=== PATIENT | female | born 1960 | race Caucasian/White ===

== ENCOUNTER 2016-11-27 08:08 | Inpatient (IN) | payer OTHER ==
[~2016-11-27] VITALS: Ht 157.5 cm; Wt 57.9 kg
[2016-11-27] VITALS (9 sets, daily range): BP systolic 152–199; BP diastolic 73–119; PULSE 74–109; RESP 18–20; TEMP 97.3–98; O2SAT 94–98
[2016-11-27] MEDS ORDERED: SODIUM CHLOR 0.9% 1000 ML INJ 1,000 ML IV ONE (08:29)
[2016-11-27] MEDS ORDERED: SODIUM CHLORIDE 0.9% FLUSH 5 ML FLUSH IVF PRN (08:30)
[2016-11-27] MEDS ORDERED: diphenhydrAMINE HCL 50 MG/ML VIAL IVP ONE (08:30)
[2016-11-27] MEDS ORDERED: PROCHLORPERAZINE INJ 10 MG/2 ML VIAL IVP ONE (08:30)
[2016-11-27] MEDS ORDERED: LORazepam 2 MG/ML VIAL IV PUSH ONE (08:30)
--- NOTE | 2016-11-27 08:38 | PD ---
HPI Chief Complaint: Neuro Symptoms/ Deficits Time Seen by Provider: 08:29 Travel History International Travel<30 days: No Contact w/Intl Traveler<30days: No Traveled to known affect area: No History of Present Illness HPI [id number] woman who presents to the emergency department complaining that starting yesterday evening she started getting funny visual changes. She describes a multicolored spots in her visual alvarado were toward the front. It is worse this morning. She feels like his affected her Perception. She is also been unsteady and having difficulty walking. She's been under a lot of stress recently over the past 3 weeks. She never had previous similar symptoms. She has been having some mild headache. She describes it about 6 out of 10 in severity. States she is prone to headaches. She had migraines in the past but doesn't think this feels like a migraine. Headache is more in the frontal area. She states that she sees the visual changes in both eyes and if she closes one eye she still sees it she closes the other eye she still sees it. Review of systems is positive for decreased appetite and decreased sleep. History Past Medical History Narrative Medical Hypertension Past Surgical History Surgical History: No Previous Surgery Social History Alcohol Use: Yes (WEEKEND DRINKER) Tobacco Use: Yes (1PPD) Allergies-Medications (Allergen,Severity, Reaction): Coded Allergies: No Known Allergies (Unverified , 11/27/16) Reported Meds & Prescriptions Reported Meds & Active Scripts Active Reported Hydrochlorothiazide 12.5 Mg Cap 12.5 Mg PO DAILY Losartan (Losartan Potassium) 25 Mg Tab 25 Mg PO DAILY Xanax (Alprazolam) 0.5 Mg Tab 0.5 Mg PO Q8H PRN Review of Systems Except as stated in HPI: all other systems reviewed are Neg Physical Exam Narrative GENERAL: Well-appearing 56-year-old woman, no acute distress. SKIN: Warm and dry. HEAD: Atraumatic. Normocephalic. EYES: Pupils equal and round. No scleral icterus. No injection or drainage. ENT: Eyes are little injected but otherwise unremarkable. NECK: Trachea midline. No JVD. CARDIOVASCULAR: Regular rate and rhythm. No murmur appreciated. RESPIRATORY: No accessory muscle use. Clear to auscultation. Breath sounds equal bilaterally. GASTROINTESTINAL: Abdomen soft, non-tender, nondistended. Hepatic and splenic margins not palpable. MUSCULOSKELETAL: No obvious deformities. No clubbing. No cyanosis. No edema. NEUROLOGICAL: Awake and alert. Obvious facial asymmetry. Cranial nerves are intact exception of visual changes was noted. Extraocular movements are full. Strength is full and equal upper and lower extremities. She has obvious dysmetria with chest all left upper extremity. She chooses to visual difficulties but only has trouble with the left. She has no trouble with heel- to-zapata on either side. She has an unsteady gait and is unable to show little toe walk following the one side. PSYCHIATRIC: Appropriate mood and affect; insight and judgment normal. Data Data Last Documented VS Vital Signs Date Time Temp Pulse Resp B/P Pulse Ox O2 Delivery O2 Flow Rate FiO2 11/27/16 12:30 82 18 160/96 95 Room Air 11/27/16 08:13 97.7 Orders Electrocardiogram (11/27/16 08:29) Prothrombin Time / Inr (Pt) (11/27/16 08:29) Act Partial Throm Time (Ptt) (11/27/16 08:29) Complete Blood Count With Diff (11/27/16 08:29) Comprehensive Metabolic Panel (11/27/16 08:29) Drug Screen, Random Urine (11/27/16 08:29) Urinalysis - C+S If Indicated (11/27/16 08:29) Ct Brain W/O Iv Contrast(Rout) (11/27/16 08:29) Ecg Monitoring (11/27/16 08:29) Iv Access Insert/Monitor (11/27/16 08:29) Oximetry (11/27/16 08:29) Sodium Chloride 0.9% Flush (Ns Flush) (11/27/16 08:30) Prochlorperazine Inj (Compazine Inj) (11/27/16 08:30) Diphenhydramine Inj (Benadryl Inj) (11/27/16 08:30) Sodium Chlor 0.9% 1000 Ml Inj (Ns 1000 M (11/27/16 08:29) Lorazepam Inj (Ativan Inj) (11/27/16 08:30) Mri Brain W&W/O Contrast (11/27/16 ) Gadodiamide Pf Inj (Omniscan Pf Inj) (11/27/16 12:06) Mra Brain W/O Contrast (Cow) (11/27/16 ) Mrv Brain W Contrast (11/27/16 ) Labs Laboratory Tests Test 11/27/16 11/27/16 08:35 08:50 White Blood Count 6.8 TH/MM3 Red Blood Count 5.35 MIL/MM3 Hemoglobin 16.5 GM/DL Hematocrit 48.3 % Mean Corpuscular Volume 90.3 FL Mean Corpuscular Hemoglobin 30.8 PG Mean Corpuscular Hemoglobin 34.1 % Concent Red Cell Distribution Width 13.4 % Platelet Count 140 TH/MM3 Mean Platelet Volume 7.9 FL Neutrophils (%) (Auto) 75.7 % Lymphocytes (%) (Auto) 13.9 % Monocytes (%) (Auto) 9.3 % Eosinophils (%) (Auto) 0.4 % Basophils (%) (Auto) 0.7 % Neutrophils # (Auto) 5.2 TH/MM3 Lymphocytes # (Auto) 1.0 TH/MM3 Monocytes # (Auto) 0.6 TH/MM3 Eosinophils # (Auto) 0.0 TH/MM3 Basophils # (Auto) 0.0 TH/MM3 CBC Comment DIFF FINAL Differential Comment Prothrombin Time 10.8 SEC Prothromb Time International 1.0 RATIO Ratio Activated Partial 28.9 SEC Thromboplast Time Sodium Level 135 MEQ/L Potassium Level 3.7 MEQ/L Chloride Level 95 MEQ/L Carbon Dioxide Level 27.0 MEQ/L Anion Gap 13 MEQ/L Blood Urea Nitrogen 10 MG/DL Creatinine 0.79 MG/DL Estimat Glomerular Filtration 75 ML/MIN Rate Random Glucose 109 MG/DL Calcium Level 9.3 MG/DL Total Bilirubin 1.3 MG/DL Aspartate Amino Transf 132 U/L (AST/SGOT) Alanine Aminotransferase 158 U/L (ALT/SGPT) Alkaline Phosphatase 99 U/L Total Protein 7.8 GM/DL Albumin 4.0 GM/DL Urine Collection Type CLEAN CATCH Urine Color YELLOW Urine Turbidity CLEAR Urine pH 6.5 Urine Specific [place] 1.013 Urine Protein 100 mg/dL Urine Glucose (UA) NEG mg/dL Urine Ketones TRACE mg/dL Urine Occult Blood TRACE Urine Nitrite NEG Urine Bilirubin NEG Urine Leukocyte Esterase NEG Urine RBC 0-3 /hpf Urine Squamous Epithelial 0-5 /hpf Cells Urine Hyaline Casts 15-19 /lpf Urine Mucus OCC /lpf Microscopic Urinalysis Comment CULT NOT INDICATED Urine Opiates Screen NEG Urine Barbiturates Screen NEG Urine Amphetamines Screen NEG Urine Benzodiazepines Screen POS Urine Cocaine Screen NEG Urine Cannabinoids Screen NEG MDM Medical Decision Making Medical Screen Exam Complete: Yes Emergency Medical Condition: Yes Interpretation(s) My review of EKG: Normal sinus rhythm at a rate of 80, normal axis, normal intervals, no ischemia. Head CT negative. MRI brain: Abnormal. Scattered areas of high signal intensity in both occipital area sugars are suspicious for subacute ischemic process. Given its location would favor the basal artery however it appeared patent. Similar changes seen high over the cortical surface of both hemispheres as well. More suggestive of old process. Consider anoxia, inflammatory process, cerebritis, or press. Differential Diagnosis Migraine, CVA, ocular problem, retinal detachment, other Narrative Course Medical decision making INITIAL: A 56-year-old woman who presents to the emergency department with binocular visual changes and unsteadiness with left upper extremity dysmetria suggestive of migraine or stroke. We'll check labs, CT, MRI, migraine cocktail , reassess. FINAL: MRI is markedly abnormal. Etiology unclear. Possible posterior reversible encephalopathy syndrome. Possibly cerebritis or vasculitis. I spoke with Dr. Keith, request MRA MRV, will consult on patient. Recommended blood pressure control less than 160. Spoke with Dr. freeman, 4 to healthcare. We'll admit patient. Diagnosis Primary Impression: Encephalopathy acute Admitting Information Admitting Physician Requests: Benitez Shelby MD Nov 27, 2016 08:38
[2016-11-27 08:46] LABS: AUTOMATED NEUTROPHIL # 5.2 TH/MM3 (1.8-7.7); BASOPHIL % 0.7 % (0.0-2.0); EOSINOPHIL % 0.4 % (0.0-4.0); HEMATOCRIT 48.3 % (35.0-46.0); HEMO FLAGS DIFF FINAL; LYMPH % 13.9 % (9.0-44.0); MEAN CELL VOLUME 90.3 FL (80.0-100.0); MEAN CORPUSCULAR HEMOGLOBIN 30.8 PG (27.0-34.0); MEAN CORPUSCULAR HGB CONC 34.1 % (32.0-36.0); MONO % 9.3 % (0.0-8.0); NEUT % 75.7 % (16.0-70.0); PLATELET COUNT 140 TH/MM3 (150-450); RED BLOOD COUNT 5.35 MIL/MM3 (4.00-5.30); RED CELL DISTRIBUTION WIDTH 13.4 % (11.6-17.2); WHITE BLOOD COUNT 6.8 TH/MM3 (4.0-11.0)
[2016-11-27 08:55] LABS: CHLORIDE 95 MEQ/L (98-107); POTASSIUM 3.7 MEQ/L (3.5-5.1); SODIUM (NA) 135 MEQ/L (136-145)
[2016-11-27 08:59] LABS: ANION GAP 13 MEQ/L (5-15); APTT (PATIENT) 28.9 SEC (24.3-30.1); BLOOD UREA NITROGEN 10 MG/DL (7-18); PROTHROMBIN TIME - PATIENT 10.8 SEC (9.8-11.6)
[2016-11-27 09:00] LABS: BLOOD, URINE TRACE (NEG); GLUCOSE,URINE NEG (NEG); KETONE, URINE TRACE mg/dL (NEG); NITRITE,URINE NEG (NEG); PH, URINE 6.5 (5.0-8.5)
[2016-11-27 09:02] LABS: ALT (GPT) 158 U/L (10-53); AST (GOT) 132 U/L (15-37); GLOMERULAR FILTRATION RATE 75 ML/MIN (>89)
[2016-11-27 09:03] LABS: TOTAL BILIRUBIN ADULT 1.3 MG/DL (0.2-1.0)
[2016-11-27] MEDS ORDERED: LOSA25TA PO ×2 (09:03→16:20)
[2016-11-27] MEDS ORDERED: HYDR12.57 PO ×2 (09:03→16:20)
[2016-11-27] MEDS ORDERED: ALPR.5 PO (09:03)
[2016-11-27 09:05] LABS: ALKALINE PHOSPHATASE 99 U/L (45-117)
[2016-11-27 09:10] LABS: AMPHETAMINE, URINE NEG (NEG); BARBITURATES, URINE NEG (NEG); COCAINE, URINE NEG (NEG)
[2016-11-27 09:18] LABS: URINE COLOR YELLOW (YELLW/STRAW)
[2016-11-27 09:20] LABS: MUCUS URINE OCC /lpf (OCC); SQUAMOUS EPITHELIAL CELL URINE 0-5 /hpf (0-5)
[2016-11-27 09:21] LABS: RBC, URINE 0-3 /hpf (0-3)
[2016-11-27 09:23] LABS: METHOD OF COLLECTION CLEAN CATCH
[2016-11-27 09:24] LABS: COMMENT (UR) CULT NOT INDICATED; CULTURE IF INDICATED CULT NOT INDICATED; HYALINE CAST, URINE 15-19 /lpf (RARE)
--- NOTE | 2016-11-27 09:31 | RADHPO ---
EXAM DATE/TIME: 11/27/2016 09:13 [facility] COMPARISON: No previous studies available for comparison. INDICATIONS : Cephalgia. Loss of balance. Seeing spots. RADIATION DOSE: 64.77 CTDIvol (mGy) MEDICAL HISTORY : Hypertension. SURGICAL HISTORY : None. ENCOUNTER: Initial ACUITY: 2 days PAIN SCALE: 6/10 LOCATION: cranial TECHNIQUE: Multiple contiguous axial images were obtained of the head. Using automated exposure control and adj ustment of the mA and/or kV according to patient size, radiation dose was kept as low as reasonably a chievable to obtain optimal diagnostic quality images. FINDINGS: CEREBRUM: The ventricles are normal for age. No evidence of midline shift, mass lesion, hemorrhage or acute in farction. No extra-axial fluid collections are seen. POSTERIOR FOSSA: The cerebellum and brainstem are intact. The 4th ventricle is midline. The cerebellopontine angle i s unremarkable. EXTRACRANIAL: The visualized portion of the orbits is intact. There is bilateral maxillary sinus disease. SKULL: The calvaria is intact. No evidence of skull fracture. CONCLUSION: 1. No intracranial abnormality is seen. 2. Maxillary sinus disease. Puneet Sue MD on November 27, 2016 at 9:25 Board Certified Radiologist. This report was verified electronically.
[2016-11-27] MEDS ORDERED: GADODIAMIDE PF 287 MG/ML 5 ML VIAL (for RAD MRI) IV ONE (12:06)
--- NOTE | 2016-11-27 13:06 | RADHPO ---
EXAM DATE/TIME: 11/27/2016 11:44 [facility] COMPARISON: No previous studies available for comparison. INDICATIONS : CVA. Headaches and seeing colorful circles. CONTRAST: 12 cc Omniscan (gadodiamide) IV MEDICAL HISTORY : None. SURGICAL HISTORY : Breast implants. ENCOUNTER: Initial ACUITY: 1 day PAIN SCORE: 6/10 LOCATION: Head. TECHNIQUE: Multiplanar, multisequence MRI of the brain was performed both prior to and following the administrat ion of paramagnetic contrast. FINDINGS: There are scattered areas of high signal intensity in both occipital hemispheres that are suspicious for a subacute ischemic process. Given its location this would most likely involve the basilar artery; however, I d o see both of the posterior cerebrals and the basilar which appear to be patent. Similar changes are seen high over the cortical surface of both hemispheres as well. This is more sullivan ggestive of a global process such as chronic hypertension or episodic hypertension. (PRESS syndrome). Anoxia coul d produce a similar appearance. Inflammatory process is thought to be less likely. This could be an early presentation for a cerebri tis. There is no abnormal contrast enhancement appreciated. CONCLUSION: Abnormal MRI of the brain as described above. Carlos Qureshi MD FACR on November 27, 2016 at 12:53 Board Certified Radiologist. This report was verified electronically.
--- NOTE | 2016-11-27 13:45 | EKG ---
Date Performed: 11/27/2016 Time Performed: 08:40:00 PTAGE: 56 years EKG: Sinus rhythm Normal ECG NO PREVIOUS TRACING DOCTOR: Tommy Corcoran Interpretating Date/Time 11/27/2016 13:43:42
--- NOTE | 2016-11-27 16:03 | PD.CONS ---
History of Present Illness Service Neurology Consult Requested By er Reason for Consult abnormal mri brain Primary Care Physician Non-Staff History of Present Illness 48-year-old woman who presents to the emergency department complaining that starting yesterday evening she started getting visual changes. arellano yesterday. bp was elevated with systolic in the 170's so she took an extra dose of her bp med. this am while going to work, she didn't feel right, depth perception was still off so she came to er for further evaluation. bp in er 199/112 glucose 109. elevated ast/alt levels. no fever, focal weakness. no head/neck trauma. bp's now improved. she feels better. minimal arellano, vision improved. asking when she would be able to go home. mri brain with flair hyperintensity. History Past Medical History Narrative Medical Hypertension Past Surgical History Surgical History: No Previous Surgery Social History Alcohol Use: Yes (WEEKEND DRINKER) Tobacco Use: Yes (1PPD) Allergies-Medications (Allergen,Severity, Reaction): Coded Allergies: No Known Allergies (Unverified , 11/27/16) Reported Meds & Prescriptions Reported Meds & Active Scripts Active Reported Hydrochlorothiazide 12.5 Mg Cap 12.5 Mg PO DAILY Losartan (Losartan Potassium) 25 Mg Tab 25 Mg PO DAILY Xanax (Alprazolam) 0.5 Mg Tab 0.5 Mg PO Q8H PRN Review of Systems Except as stated in HPI/med admit; rest as above Review of Systems All other ROS: ROS reviewed as documented in chart Past Family Social History Allergies: Coded Allergies: No Known Allergies (Unverified , 11/27/16) Active Ordered Medications Current Medications Medications (Trade) Dose Ordered Sig/Casey Route Start Time Stop Time Status Last Admin (NS Flush) 2 ml UNSCH PRN IVF 11/27/16 08:30 11/27/16 08:55 Exam I&O / VS Vital Signs Date Time Temp Pulse Resp B/P Pulse Ox O2 Delivery O2 Flow Rate FiO2 11/27/16 15:45 82 18 171/73 95 11/27/16 14:30 90 18 170/92 94 Room Air 11/27/16 12:30 82 18 160/96 95 Room Air 11/27/16 10:04 74 18 165/95 95 Room Air 11/27/16 09:04 99 Room Air 3/16/17 08:55 108 20 199/112 98 Room Air 11/27/16 08:38 98 Room Air 11/27/16 08:13 97.7 109 20 167/119 94 General: Alert and Oriented, No acute distress Eye: EOMI Respiratory: Non-labored respirations Cardiology: Normal rate Neurologic: Alert, Oriented, Normal sensory, Normal motor, Normal DTR's Psychiatric: Cooperative, Appropriate mood & affect Exam Comments ox 3. alert, neck supple. follows articulate. looks well. vff grossly full. able to name objects. minimal left ue dysmetria. no drift. gait not assessed 2/ 2 fall risk, planterflexor, no clonus Review/Management Diagnosis/Plan: (1) Posterior reversible encephalopathy syndrome (PRES) Plan: bp control no fever, wbc in normal range recs bp control aspirin 81mg qd f/u mra/mrv brain labs p.t. gait eval no driving for now repeat mri brain in 6-8 weeks d/c planning likely in am (2) Hypertensive urgency Plan: bp control (3) Elevated liver enzymes Plan: possibly 2/2 etoh use Romel Keith MD Nov 27, 2016 16:03
[2016-11-27] MEDS ORDERED: ALPRAZolam 0.5 MG TAB PO PRN (16:30)
[2016-11-27] MEDS ORDERED: LOSARTAN 50 MG TAB PO SCH (16:30)
[2016-11-27] MEDS: HYDROCHLOROTHIAZIDE 25 MG TAB PO SCH (16:58)
--- NOTE | 2016-11-27 17:23 | MH ---
cc: [facility] DATE OF ADMISSION: 11/27/2016 ADMITTING DIAGNOSIS: 1. Posterior reversal encephalopathy syndrome (PRES) 2. Hypertensive urgency 3. Chronic hypertension. 4. Anxiety. 5. History of mild hyperlipidemia. 6. Elevated liver function test likely secondary to recent binge drinking of alcohol. PERTINENT HISTORY This is a 56-year-old white female who started yesterday with having some visual field defects she was having some spotty stevens appearing areas in her vision in both eyes. it would move around one. Her eyes would move in different directions. It progressed to even having a [place] tree type appearance, according to her. She had associate frontal headache, that started yesterday. She had no trouble with any other neurological symptoms yesterday. She had got up this morning and noticed that she was a little wobbly or unsteady walking but still had the visual symptoms. She went to work but did not get any better so and up, to the emergency room. She has no focal weakness in arms and legs. No numbness or tingling. No speech problems. No trouble swallowing. She has had no history of stroke or seizures. Her blood pressure was very elevated when she came in the ER at around 199/112. She has been under increased stress she admits. In the emergency department her CT brain scan showed no acute intracranial processes. An MRI was done which showed scattered areas of high signal intensity in both occipital hemispheres. Similar changes were seen over the cortical surface of both Hemispheres, this was suggested by the radiologist of a global process such has chronic hypertension or episodic hypertension (press syndrome) and inflammatory process was felt to be less likely. She is admitted and neurology was consulted and recommended admission her blood pressure has come down and has resulted that when I saw her in the ED her visual symptoms are improved, her blood pressure has come down 171/73, 160/96. She also mentioned that she has been drinking more alcohol in the last 10 days about six beers a day. MEDICAL HISTORY She takes blood pressure medicines and has been on for awhile. She has had migraine headache in the past but has had occasional tension headaches. She has had some just mild hyperlipidemia. Denies any heart disease, liver disease, previously no kidney disease. No lung disease. No prior stroke or seizure, no thyroid disease. She had a colon polyp in 2009 and had two polyps removed. One was a adenomatous polyp on 10/05/2009 with an colonoscopy. She had an EGD with dilation of the esophagus on 10/05/2009. She has anxiety as mentioned. PAST SURGICAL HISTORY Then bilateral sating and saline implants had colonoscopy as mentioned on 10/05/2009 and an EGD on 10/05/2009 with dilation of the esophagus. The otherwise appearance of the of the esophagus and stomach were normal. ALLERGIES None. MEDICATIONS She actually takes 1. Losartan 50 mg one a day. 2. Hydrochlorothiazide 25 mg one a day for blood pressure she takes as an. 3. Alprazolam 0.5 mg just occasionally for anxiety. She does not use on daily basis. FAMILY HISTORY Mother living at 83 has hypertension, anxiety. Father at 84 had lymphoma. He also had prostate cancer. SOCIAL HISTORY She smokes a pack a day and started at age 13. She generally does strength beer on the week and about 12 beers on weekends but mentioned in the last 10 days she has been drinking about six beers a day. 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 HEAD, EYES, EARS, NOSE, AND THROAT: She recently has had cold symptoms or runny nose that is pretty much improved and resolved. She is still has a residual slight cough. CARDIOVASCULAR SYSTEM: No chest pain, orthopnea, PND. Pulmonary: Has just slight cough that is improved from recent URI no shortness of breath. GASTROINTESTINAL: No nausea, vomiting, abdominal pain, diarrhea, rectal bleeding. GENITOURINARY: No dysuria, urgency, frequency. Extremities: Without swelling. SKIN: She has had skin cancers removed recently NEUROLOGIC: As mentioned. PHYSICAL EXAMINATION IN GENERAL: Pleasant white female alert and oriented. No distress. VITAL SIGNS: Her BP initially was 199/112 this morning it has come down to 171/73 without medication. Her respirations 18, pulse 82, O2 sat 95%. HEAD, EYES, EARS, NOSE, AND THROAT: TMs clear. Pupils. Pupils equal. Sclerae nonicteric. Nose without lesion. Mouth without inflammation or lesion. She has dentures. NECK: Without bruit. No JVD. No thyromegaly. HEART: Regular rate and rhythm. No murmur. LUNGS: Clear. ABDOMEN: Soft, nontender, no mass. EXTREMITIES: Pulses palpated both feet. No edema. No calf tenderness. NEUROLOGIC: She is oriented x3. No focal weakness or sensory loss or confusion on did not attempt to ambulate her. LABORATORY DATA Her sodium was 135, potassium 3.7, BUN and 10, creatinine 0.79, glucose was 109. Her AST was elevated 132, ALT elevated 158 with normal alkaline phosphatase normal, total protein albumin, calcium was normal. Bilirubin 1.3, coag was INR was 1.0. Urine drug screen just showed positive for benzodiazepines but she is on alprazolam. Her urine was negative. X-RAYS CT brain scan MRI as mentioned. ASSESSMENT As noted. PLAN She is going to be resumed on her losartan 50 mg daily and hydrochlorothiazide 25 mg daily. She will be given his alprazolam the use as needed for anxiety. Neurology has already seen her and evaluated her. I have discussed the case with Dr. Keith, Hopefully her liver function test will improve when being off alcohol. MD ARLETTE Escobar/deisi /4:26 PM /4:45 PM
[2016-11-27] MEDS: ASPIRIN EC 81 MG TABEC PO SCH (18:46)
[2016-11-27 19:05] LABS: TOTAL BILIRUBIN ADULT 1.2 MG/DL (0.2-1.0)
[2016-11-28] VITALS (7 sets, daily range): BP systolic 113–169; BP diastolic 75–109; PULSE 91–102; RESP 18–20; TEMP 96.4–97.3; O2SAT 95–96
[2016-11-28] MEDS ORDERED: LOSARTAN 25 MG TAB PO ONE (02:00)
[2016-11-28] MEDS: HYDROCHLOROTHIAZIDE 25 MG TAB PO SCH (08:01)
[2016-11-28] MEDS: ASPIRIN EC 81 MG TABEC PO SCH (08:01)
--- NOTE | 2016-11-28 08:57 | HHI.PR ---
Subjective Remarks She states she feels better today. She hasn't gotten out of bed today. Objective Vitals Vital Signs Date Time Temp Pulse Resp B/P Pulse Ox O2 Delivery O2 Flow Rate FiO2 11/28/16 08:06 96.8 91 18 155/109 95 11/28/16 04:00 97.3 95 18 146/81 96 11/28/16 00:00 97.1 102 20 151/97 95 11/27/16 20:00 98.0 76 18 152/92 96 11/27/16 16:00 97.3 98 18 171/95 96 11/27/16 15:45 82 18 171/73 95 11/27/16 14:30 90 18 170/92 94 Room Air 11/27/16 12:30 82 18 160/96 95 Room Air 11/27/16 10:04 74 18 165/95 95 Room Air 11/27/16 09:04 99 Room Air 11/27/16 08:55 108 20 199/112 98 Room Air 11/27/16 11/27/16 11/28/16 15:00 23:00 07:00 Intake Total 1000 ml 480 ml 360 ml Output Total 900 ml 250 ml Balance 1000 ml -420 ml 110 ml Intake Oral 480 ml 360 ml IV Total 1000 ml Output Urine Total 900 ml 250 ml # Voids 1 3 # Bowel Movements 0 0 Result Diagram: 11/27/16 0835 11/27/16 0835 Other Results Laboratory Tests Test 11/27/16 11/27/16 11/27/16 08:35 08:50 14:44 White Blood Count 6.8 TH/MM3 Red Blood Count 5.35 MIL/MM3 Hemoglobin 16.5 GM/DL Hematocrit 48.3 % Mean Corpuscular Volume 90.3 FL Mean Corpuscular Hemoglobin 30.8 PG Mean Corpuscular Hemoglobin 34.1 % Concent Red Cell Distribution Width 13.4 % Platelet Count 140 TH/MM3 Mean Platelet Volume 7.9 FL Neutrophils (%) (Auto) 75.7 % Lymphocytes (%) (Auto) 13.9 % Monocytes (%) (Auto) 9.3 % Eosinophils (%) (Auto) 0.4 % Basophils (%) (Auto) 0.7 % Neutrophils # (Auto) 5.2 TH/MM3 Lymphocytes # (Auto) 1.0 TH/MM3 Monocytes # (Auto) 0.6 TH/MM3 Eosinophils # (Auto) 0.0 TH/MM3 Basophils # (Auto) 0.0 TH/MM3 CBC Comment DIFF FINAL Differential Comment Prothrombin Time 10.8 SEC Prothromb Time International 1.0 RATIO Ratio Activated Partial 28.9 SEC Thromboplast Time Sodium Level 135 MEQ/L Potassium Level 3.7 MEQ/L Chloride Level 95 MEQ/L Carbon Dioxide Level 27.0 MEQ/L Anion Gap 13 MEQ/L Blood Urea Nitrogen 10 MG/DL Creatinine 0.79 MG/DL Estimat Glomerular Filtration 75 ML/MIN Rate Random Glucose 109 MG/DL Calcium Level 9.3 MG/DL Urine Collection Type CLEAN CATCH Urine Color YELLOW Urine Turbidity CLEAR Urine pH 6.5 Urine Specific [place] 1.013 Urine Protein 100 mg/dL Urine Glucose (UA) NEG mg/dL Urine Ketones TRACE mg/dL Urine Occult Blood TRACE Urine Nitrite NEG Urine Bilirubin NEG Urine Leukocyte Esterase NEG Urine RBC 0-3 /hpf Urine Squamous Epithelial 0-5 /hpf Cells Urine Hyaline Casts 15-19 /lpf Urine Mucus OCC /lpf Microscopic Urinalysis Comment CULT NOT INDICATED Urine Opiates Screen NEG Urine Barbiturates Screen NEG Urine Amphetamines Screen NEG Urine Benzodiazepines Screen POS Urine Cocaine Screen NEG Urine Cannabinoids Screen NEG Erythrocyte Sedimentation Rate 1 mm/hr Total Bilirubin 1.2 MG/DL Direct Bilirubin 0.2 MG/DL Indirect Bilirubin 1.0 MG/DL Aspartate Amino Transf 111 U/L (AST/SGOT) Alanine Aminotransferase 138 U/L (ALT/SGPT) Alkaline Phosphatase 86 U/L C-Reactive Protein 1.40 MG/DL Total Protein 7.0 GM/DL Albumin 3.4 GM/DL Vitamin B12 Level 1147 PG/ML Imaging Last Impressions Head CT 11/27/16 0829 Signed Impressions: Service Date/Time: November 09:13 - CONCLUSION: 1. No intracranial abnormality is seen. 2. Maxillary sinus disease. Puneet Sue MD Brain MRI 11/27/16 0000 Signed Impressions: Service Date/Time: November 11:44 - CONCLUSION: Abnormal MRI of the brain as described above. Carlos Qureshi MD FACR Objective Remarks Exam: Pleasant female in no distress. HEENT: Pupils equal. No scleral icterus. Mouth with dentures Neck: No JVD, No bruit Heart: RRR with no murmurs Lungs: Clear Abdomen: Soft, nontender Extremities: No edema Neuro: Alert, oriented, no motor or sensory deficits. I had her walk and she displayed no significant ataxia. A/P Assessment and Plan Assessment: --Posterior reversible encephalopathy (PRES) --Hypertensive urgency: BP improved from admission --Chronic hypertension --Anxiety --Elevated liver function testing likely secondary to drinking 6 beers a day over the previous ten days. --Smoker Plan: I increased her Losartan 50mg to one twice a day. She is maintained on HCTZ 25mg daily. She occasionally uses Alprazolam 0.5mg prn anxiety. I told her to quit smoking and stop alcohol for now and that she would need to recheck her liver enzymes in 3-4 weeks. If neurology clears her for discharge she can go later today and I will leave her a new script for Losartan 50mg twice a day and she can followup with her PCP (Dr Mac) within one week to recheck her blood pressure. She will also followup with Dr Dueñas (neurology) if he feels it is necessary. Jayesh Boucher MD Nov 28, 2016 08:56
[2016-11-28] MEDS ORDERED: LOSARTAN 50 MG TAB PO SCH (09:00)
--- NOTE | 2016-11-28 12:03 | RADHPO ---
EXAM DATE/TIME: 11/28/2016 11:14 [facility] COMPARISON: MRI BRAIN W & W/O CONTRAST, November 27, 2016, 11:44. INDICATIONS : Cephalgia. MRI Findings. MEDICAL HISTORY : None. SURGICAL HISTORY : Breast augmentation. ENCOUNTER: Initial ACUITY: 2 day PAIN SCORE: 6/10 LOCATION: cranial Please note a normal MRA of the brain does not entirely exclude the possibility of a small aneurysm, nor the possibility of distal intracranial vessel disease. TECHNIQUE: 3D time of flight MRA was performed. Source images, multiplanar STS MIP, and 3D volume MIP reconstru ctions were reviewed. FINDINGS: There is excellent visualization of the major intracranial arteries out to the second-order branch ve ssels. There is no evidence for aneurysm, vessel truncation or stenosis, and no evidence for vascula r malformation. CONCLUSION: Normal examination. Puneet Sue MD on November 28, 2016 at 11:55 Board Certified Radiologist. This report was verified electronically.
--- NOTE | 2016-11-28 12:04 | RADHPO ---
EXAM DATE/TIME: 11/28/2016 11:14 COMPARISON: No previous studies available for comparison. INDICATIONS : Cephalgia. CONTRAST: 20 cc Omniscan (gadodiamide) IV MEDICAL HISTORY : None. SURGICAL HISTORY : Breast augmentation. ENCOUNTER: Initial ACUITY: 2 day PAIN SCORE: 7/10 LOCATION: cranial FINDINGS: There is good visualization of the superficial and deep venous system. There is no evidence for thro mbosis. CONCLUSION: Negative for venous thrombosis. Carlos Qureshi MD FACR on November 28, 2016 at 12:03 Board Certified Radiologist. This report was verified electronically.
[2016-11-28] MEDS ORDERED: LABETALOL HCL 300 MG TAB PO SCH (12:30)
[2016-11-28] MEDS ORDERED: ASPI81TA11 PO (17:03)
[2016-11-28] MEDS ORDERED: COZA50TA PO (17:03)
[2016-11-28] MEDS ORDERED: LABETALOL HCL 100 MG TAB PO SCH (21:00)
== END 2016-11-28 17:47 | disposition home or self-care (01) | DRG 304 ==
LOC: PHED 08:08 → PHEDA 14:23 → PH3A 15:48
PROVIDERS: ADMIT Family Medicine; ATTEND Family Medicine
DX: I16.0 Hypertensive urgency (principal); I67.83 Posterior reversible encephalopathy syndrome; G93.40 Encephalopathy, unspecified; I10 Essential (primary) hypertension; F17.210 Nicotine dependence, cigarettes, uncomplicated; F41.9 Anxiety disorder, unspecified; E78.5 Hyperlipidemia, unspecified; H53.40 Unspecified visual field defects; G43.909 Migraine, unspecified, not intractable, without status migrainosus; G44.209 Tension-type headache, unspecified, not intractable; R74.8 Abnormal levels of other serum enzymes; Z86.010 Personal history of colon polyps; Z80.7 Family history of other malignant neoplasms of lymphoid, hematopoietic and related tissues; Z80.42 Family history of malignant neoplasm of prostate; Z82.49 Family history of ischemic heart disease and other diseases of the circulatory system
CPT/HCPCS: 70450; 70544; 70546; 70553; 80053; 80076; 80307; 81001; 82607; 85025; 85610; 85652; 85730; 86140; 86803; 93005; 96361; 96374; 96375; A9579; J0780; J1200; J2060; J7030